=== PATIENT | male | born 1975 | race Two or more races ===

== ENCOUNTER 2023-04-11 14:02 | Emergency (ER) | payer MEDICAID ==
[~2023-04-11] VITALS: Ht 167.6 cm; Wt 80.0 kg
[2023-04-11 14:08] VITALS: BP 163/96; PULSE 89; RESP 18; TEMP 98.5
[2023-04-11] MEDS ORDERED: IBUPROFEN 600 MG TABLET PO ONE (14:45)
[2023-04-11] MEDS ORDERED: AMOX TR/POT CLAV 875 MG/125 MG TABLET PO ONE (14:45)
[2023-04-11] MEDS ORDERED: IBUP-1492 PO (14:52)
[2023-04-11] MEDS ORDERED: AMOX1TAB16 PO (14:52)
== END 2023-04-11 15:01 | disposition home or self-care (01) ==
LOC: EMS 14:13
DX: K08.89 Other specified disorders of teeth and supporting structures (principal)
CPT/HCPCS: 99283